=== PATIENT | male | born 1980 | race Caucasian/White ===

== ENCOUNTER 2021-08-28 06:42 | Emergency (ER) | payer OTHER ==
[2021-08-28 07:23] LABS: HEMOGLOBIN 16.3 gm/dl (14.0-17.5); RED BLOOD COUNT 5.32 M/UL (4.20-5.50); WHITE BLOOD COUNT 9.3 K/UL (4.5-11.0)
[2021-08-28 08:03] LABS: BUN/CREATININE RATIO 13 (0-10)
== END 2021-08-28 12:25 | disposition home or self-care (01) ==
LOC: ER1 06:42
PROVIDERS: Nurse Practitioner
DX: R07.89 Other chest pain (principal); F17.290 Nicotine dependence, other tobacco product, uncomplicated; Z20.822 Contact with and (suspected) exposure to COVID-19
CPT/HCPCS: 71045; 80048; 81001; 82550; 82553; 83874; 84484; 85025; 93005; 99285; U0002